=== PATIENT | male | born 2000 | race Two or more races ===

== ENCOUNTER 2020-09-15 13:36 | Emergency (ER) | payer OTHER ==
[~2020-09-15] VITALS: Ht 167.6 cm; Wt 99.8 kg
[2020-09-15 14:22] VITALS: BP 142/90
[2020-09-15] MEDS ORDERED: ONDANSETRON HCL 4 MG/2 ML VIAL ONE (14:25)
[2020-09-15] MEDS ORDERED: HYDROmorphone HCL 2 MG/ML VL ONE (14:25)
[2020-09-15] MEDS ORDERED: HYDROmorphone HCL 2 MG/ML VL IV ONE (15:00)
[2020-09-15] MEDS ORDERED: ONDANSETRON HCL 4 MG/2 ML VIAL IV ONE (15:00)
== END 2020-09-15 18:14 | disposition home or self-care (01) ==
LOC: EDBD 13:36 → ER 13:36
DX: S43.004A Unspecified dislocation of right shoulder joint, initial encounter (principal); V00.311A Fall from snowboard, initial encounter; Y93.23 Activity, snow (alpine) (downhill) skiing, snowboarding, sledding, tobogganing and snow tubing; Y92.89 Other specified places as the place of occurrence of the external cause; Y99.8 Other external cause status
CPT/HCPCS: 73020; 73030; 96374; 96375; 99284; J1170; J2405